=== PATIENT | female | born 1940 | race Caucasian/White ===

== ENCOUNTER 2021-03-08 10:14 | Outpatient (CLI) | payer MEDICARE, SELFPAY ==
--- NOTE | 2021-03-08 09:00 | NEURO_ITS ---
PATIENT NUMBER: [id number] IMPRESSION: # Complains of numbness in upper and lower extremities. # History of rheumatoid arthritis treatment. # No Carpal Tunnel Syndrome. 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 # Needle exam not requested. # Clinical correlation recommended. Has generalized process with more involvement at the pressure points. Nerve Conduction Studies Anti Sensory Summary Table Stim Site NR Peak (ms) P-T Amp (?V) Site1 Site2 Delta-P (ms) Dist (cm) Zhao (m/s) Left Median Anti Sensory (2-3nd Digit) Wrist 3.8 30.5 Wrist 2-3nd Digit 3.8 14.0 37 Wrist 3.5 38.4 Wrist 2-3nd Digit 3.8 14.0 37 Right Median Anti Sensory (2-3nd Digit) Wrist 3.8 29.6 Wrist 2-3nd Digit 3.8 14.0 37 Wrist 3.7 42.4 Wrist 2-3nd Digit 3.8 14.0 37 Left Radial Anti Sensory (Base 1st Digit) Wrist 1.8 23.1 Wrist Base 1st Digit 1.8 0.0 Right Radial Anti Sensory (Base 1st Digit) Wrist 2.5 19.8 Wrist Base 1st Digit 2.5 0.0 Left Sup Fibular Anti Sensory (Ant Lat Mall) 14 cm NR 14 cm Ant Lat Mall 16.0 Right Sup Fibular Anti Sensory (Ant Lat Mall) 14 cm 4.0 30.3 14 cm Ant Lat Mall 4.0 16.0 40 Left Sural Anti Sensory (Lat Mall) Calf NR Calf Lat Mall 16.0 Right Sural Anti Sensory (Lat Mall) Calf 4.5 12.7 Calf Lat Mall 4.5 16.0 36 Left Ulnar Anti Sensory (5th Digit) Wrist 3.0 2.0 Wrist 5th Digit 3.0 14.0 47 Right Ulnar Anti Sensory (5th Digit) Wrist 3.6 54.1 Wrist 5th Digit 3.6 14.0 39 Motor Summary Table Stim Site NR Onset (ms) O-P Amp (mV) Site1 Site2 Delta-0 (ms) Dist (cm) Zhao (m/s) Left Median Motor (Abd Poll Brev) Wrist 3.7 1.6 Elbow Wrist 4.7 27.0 57 Elbow 8.4 1.0 Right Median Motor (Abd Poll Brev) Wrist 4.1 1.1 Elbow Wrist 4.5 27.0 60 Elbow 8.6 2.2 Left Peroneal Motor (Vastus Med) Ankle 4.7 1.2 Popit Ankle 11.2 40.0 36 Popit 15.9 0.7 Right Peroneal Motor (Vastus Med) Ankle 4.9 1.1 Popit Ankle 8.9 39.0 44 Popit 13.8 0.1 Left Tibial Motor (Abd Glaser Brev) Ankle NR Right Tibial Motor (Abd Glaser Brev) Ankle NR Left Ulnar Motor (Abd Dig Minimi) Wrist 3.4 3.4 A Elbow Wrist 9.6 29.0 30 A Elbow 13.0 1.1 B Elbow Wrist 3.8 24.0 63 B Elbow 7.2 2.7 Right Ulnar Motor (Abd Dig Minimi) Wrist 4.0 3.6 A Elbow Wrist 5.8 27.0 47 A Elbow 9.8 2.7 F Wave Studies NR F-Lat (ms) L-R F-Lat (ms) Left Median (Mrkrs) (Abd Poll Brev) 34.61 2.27 Right Median (Mrkrs) (Abd Poll Brev) 32.34 2.27 Left Peroneal (Mrkrs) (EDB) 59.73 6.37 Right Peroneal (Mrkrs) (EDB) 66.09 6.37 Left Tibial (Mrkrs) (Abd Hallucis) 74.39 34.39 Right Tibial (Mrkrs) (Abd Hallucis) 40.00 34.39 Left Ulnar (Mrkrs) (Abd Dig Min) 31.72 2.48 Right Ulnar (Mrkrs) (Abd Dig Min) 29.24 2.48 MTDD
== END 2021-03-08 10:15 | disposition home or self-care (01) ==
LOC: ANHNEURO 10:18
PROVIDERS: PCP Family Medicine; Visit Provider Family Medicine
DX: R20.9 Unspecified disturbances of skin sensation (principal); G56.22 Lesion of ulnar nerve, left upper limb
CPT/HCPCS: 95913

== ENCOUNTER 2023-10-15 11:55 | Outpatient (CLI) | payer MEDICARE, SELFPAY ==
--- NOTE | ~2023-10-15 | MR_ITS ---
EXAMINATION: MR brain/brain stem wo/w con DATE: 10/15/2023 13:32 INDICATION: Bilateral extremity weakness. TECHNIQUE: Magnetic resonance imaging (MRI) of the brain and brainstem was performed without and with 15 mL MultiHance intravenous contrast. COMPARISON: None. FINDINGS: There is no intracranial hemorrhage, acute infarction, or abnormal intracranial mass lesion . There are scattered areas of nonspecific increased T2-weighted signal intensity in the cerebral whi te matter, which is within normal limits for the patient's age. The ventricles are normal in size. Th ere is mild mucosal thickening in the ethmoid sinuses. There are likely changes of ocular lens replac ement surgeries. The mastoid air cells are normal. . IMPRESSION: 1. Normal aging brain. Reviewed, dictated and finalized at location A. IMPRESSION: 1. Normal aging brain.
== END 2023-10-15 11:56 ==
PROVIDERS: PCP Family Medicine; Visit Provider Family Medicine
DX: R53.1 Weakness (principal); M48.061 Spinal stenosis, lumbar region without neurogenic claudication; G95.0 Syringomyelia and syringobulbia; F03.90 Unspecified dementia, unspecified severity, without behavioral disturbance, psychotic disturbance, mood disturbance, and anxiety; G47.00 Insomnia, unspecified
CPT/HCPCS: 70553; A9577